=== PATIENT | female | born 1975 ===

== ENCOUNTER → 2024-04-19 08:41 | Outpatient (CLI) | payer OTHER ==
[~2024-04-19 08:41] MED LIST: CLARINEX5 MG/TAB PO; SEPTRA DS TABLE1 TAB PO; SINGULAIR 10MG10 MG PO; URIN D.S. TABLE1 TAB PO
[2024-04-19 09:22] LABS: HEMATOCRIT 32.3 % (36.0-45.00); HEMOGLOBIN 10.4 g/dL (12.0-15.00); MEAN CELL VOLUME 79.7 fL (80.00-100.00); MEAN CORPUSCULAR HEMOGLOBIN 25.7 pg (27.00-32.0); MEAN CORPUSCULAR HGB CONC 32.2 g/dl (32.0-36.0); PLATELET COUNT 177 K/uL (150-450); RED BLOOD COUNT 4.05 M/uL (4.00-6.00); RED CELL DISTRIBUTION WIDTH 16.9 % (11.5-14.5)
[2024-04-19 10:27] LABS: ALBUMIN 3.9 gm/dL (3.4-5.0); BILIRUBIN TOTAL 0.5 mg/dL (0.3-1.2); CALCIUM 8.5 mg/dL (8.5-10.1); CREATININE SERUM 0.9 mg/dL (0.55-1.02); FREE TRIODOTIRONINE 2.42 pg/ml (2.18-3.98); GFR 67.11; GLOBULINA 4.1 G/DL (2.4-3.5); POTASSIUM 4.05 mEq/L (3.5-5.1); TSH 2.57 uIU/mL (0.358-3.74)
[2024-04-19 11:08] LABS: VITAMIN D3 25 HYDROXY 32.37 ng/ml (30-120)
[2024-04-20 15:07] LABS: ESTRADIOL SERUM 15.4 pg/mL (.); FOLLICLE STIMULATING HORMONE 97.7 mIU/mL (.); LEUTEINIZING HORMONE 70.6 mIU/mL (.)
== END | disposition home or self-care (01) ==
LOC: LAB 08:41
PROVIDERS: ATTEND Obstetrics & Gynecology
DX: N92.5 Other specified irregular menstruation (principal); E03.8 Other specified hypothyroidism; D50.8 Other iron deficiency anemias; I10 Essential (primary) hypertension; E55.9 Vitamin D deficiency, unspecified; R97.8 Other abnormal tumor markers

== ENCOUNTER 2024-04-19 09:43 | Outpatient (CLI) | payer OTHER | END 2024-04-19 09:51 | disposition home or self-care (01) | LOC: MAMO-SONO 09:43 | PROVIDERS: ATTEND Obstetrics & Gynecology | DX: N64.4 Mastodynia (principal); D25.1 Intramural leiomyoma of uterus ==

== ENCOUNTER 2024-12-01 08:09 | Outpatient (CLI) | payer OTHER ==
[2024-12-02 09:08] LABS: FOLLICLE STIMULATING HORMONE 29.6 mIU/mL (.)
[2024-12-03 17:08] LABS: test free 2.4 pg/mL (0.0-4.2)
== END 2024-12-01 08:10 | disposition home or self-care (01) ==
LOC: LAB 08:09
PROVIDERS: ATTEND Obstetrics & Gynecology
DX: N95.1 Menopausal and female climacteric states (principal)

== ENCOUNTER 2025-06-21 07:03 | Outpatient (CLI) | payer OTHER ==
[2025-06-21 08:26] LABS: BASO % 0.6 % (0.1-1.2); EOS # 0.07 (0.04-0.54); EOS % 1.5 % (0.7-7.0); LYMPH # 0.94 (1.18-3.74); LYMPH % 20.3 % (19.3-53.1); MEAN PLATELET VOLUME 11.30 fl (9.4-12.4); MONO # 0.25 (0.24-0.82); MONO % 5.4 % (4.7-12.5); NEUT # 3.33 (1.56-6.13); NEUT % 72.0 % (34.0-71.1); RED CELL DISTRIBUTION WIDTH 15.2 % (11.6-14.4)
[2025-06-21 09:19] LABS: ALT/SGPT 21.0 U/L (12-78); AST/SGOT 15.0 U/L (15-37); BILIRUBIN TOTAL 0.56 mg/dL (0.3-1.2); BUN CREA RATIO 19.0 (7.0-25.0); CHOL HDL RATIO 1.8 (0-5.0); CREATININE SERUM 1.09 mg/dL (0.55-1.02); FREE TRIODOTIRONINE 2.65 pg/ml (2.18-3.98); GFR 53.35; GLOBULINA 4.4 G/DL (2.4-3.5); GLUCOSE FASTING 80.0 mg/dL (65-100); HDL 98.0 mg/dl (40-60); LDL 71.0 mg/dl (0-130); OSMOLALITY SERUM 283.0 MOSM/KG (275-295); TSH 4.46 uIU/mL (0.358-3.74); VLDL 9.0 (0-39)
[2025-06-21 10:27] LABS: VITAMIN D3 25 HYDROXY 33.11 ng/ml (30-120)
[2025-06-22 08:10] LABS: ESTRADIOL SERUM 23.7 pg/mL (.)
== END 2025-06-21 07:09 | disposition home or self-care (01) ==
LOC: LAB 07:03
PROVIDERS: ATTEND Obstetrics & Gynecology
DX: E55.9 Vitamin D deficiency, unspecified (principal); D50.8 Other iron deficiency anemias; I10 Essential (primary) hypertension; N95.1 Menopausal and female climacteric states; R73.9 Hyperglycemia, unspecified; E03.8 Other specified hypothyroidism

== ENCOUNTER 2025-06-21 08:16 | Outpatient (CLI) | payer OTHER | END 2025-06-21 08:18 | disposition home or self-care (01) | LOC: MAMO-SONO 08:16 | PROVIDERS: ATTEND Obstetrics & Gynecology | DX: N64.4 Mastodynia (principal); Z12.31 Encounter for screening mammogram for malignant neoplasm of breast; D25.1 Intramural leiomyoma of uterus ==